=== PATIENT | male | born 1990 | race Caucasian/White ===

== ENCOUNTER 2024-08-30 00:17 | Emergency (ER) | payer OTHER ==
[~2024-08-30] VITALS: Ht 170.2 cm; Wt 79.4 kg
[2024-08-30] MEDS ORDERED: DISKETS40 MG PO (00:48)
[2024-08-30] MEDS ORDERED: HYDROmorphone HCL 2 MG/ML VIAL IM ONE (01:45)
[2024-08-30 02:27] VITALS: BP 134/102
== END 2024-08-30 02:28 | disposition home or self-care (01) ==
LOC: ED 00:17
DX: S61.412A Laceration without foreign body of left hand, initial encounter (principal); W26.0XXA Contact with knife, initial encounter; Z79.899 Other long term (current) drug therapy; Z88.6 Allergy status to analgesic agent
CPT/HCPCS: 12001; 73130; 99283-25; J1171